=== PATIENT | male | born 1965 | race Caucasian/White ===

== ENCOUNTER 2017-09-10 19:51 | Emergency (ER) | payer SELFPAY ==
[~2017-09-10] VITALS: Ht 175.3 cm; Wt 70.3 kg
[~2017-09-10 19:51] MED LIST: NAPR-243 PO
[2017-09-10] MEDS ORDERED: LIDOCAINE 1% INJ 20 ML 20 ML VIAL ONE (19:55)
--- OUTSIDE RECORDS SUMMARY | 2017-09-10 19:57 | XMS REPORT | Clinical Summary ---
Author Author [facility] Organization [facility] Address Unknown Phone Unavailable Care Team Providers Care Chemist Pharmaceutical Name Role Phone Issa Mesa MD PCP Source Comments Some departments are not documenting in the electronic medical record. If you do not see the information that you expected, contact Release of Information in the Health Information Management department at [phone] for further assistance in locating additional records.[facility] Allergies Not on File Current Medications Not on file Active Problems Not on file Social History Tobacco Use Types Packs/Day Years Used Date Never Assessed Sex Assigned at Date Recorded Not on file Last Filed Vital Signs Not on file Plan of Treatment Health Maintenance Due Date Last Done Comments HEPATITIS C SCREENING 1965 PHYSICAL (COMPREHENSIVE) 01/15/1972 EXAM PERTUSSIS VACCINE 01/15/1976 HIV SCREENING 01/15/1980 TETANUS VACCINE 1982 COLORECTAL CANCER 2015 SCREENING INFLUENZA VACCINE 12/25/2017 Results Not on filefrom Last 3 Months
--- OUTSIDE RECORDS SUMMARY | 2017-09-10 19:57 | XMS REPORT | Clinical Summary ---
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 2 Dose Standard) Influenza Vaccine (Season 11/25/2017 Ended) Results Not on filefrom Last 3 Months
--- OUTSIDE RECORDS SUMMARY | 2017-09-10 19:57 | XMS REPORT | Continuity of Care Document ---
Author Author [facility] Organization [facility] Address Unknown Phone Unavailable Allergies There is no data. Medications There is no data. Problems There is no data. Procedures There is no data. Results There is no data. Encounters ACCT No. Visit Date/Time Discharge Status Pt. Type Provider Facility Loc./Unit Complaint [id number] 12/16/2013 18:08:00 12/16/2013 19:14:00 DIS Emergency
--- OUTSIDE RECORDS SUMMARY | 2017-09-10 19:57 | XMS REPORT ---
Author Author REHAN HALL [facility] Address [address] [place] [address] Care Team Providers Care Senior Sql Server Developer Name Role Phone REHAN HALL Unavailable PROBLEMS Unknown Problems ALLERGIES No Known Allergies ENCOUNTERS [facility]counter [facility] [address] [facility] [id number] [address] Oct, Foreign body in skin T14.8 IMMUNIZATIONS No Known Immunizations SOCIAL HISTORY Never Assessed REASON FOR VISIT splinter left forearm Sat JStrasserRN PLAN OF CARE Activity Details Follow Up prn Reason: VITAL SIGNS Height 69.5 in 2016-11-21 Weight 151.4 lbs 2016-11-21 Temperature 97.9 degrees Fahrenheit 2016-11-21 Heart Rate 74 bpm 2016-11-21 Respiratory Rate 20 2016-11-21 BMI 22.03 kg/m2 2016-11-21 Blood pressure systolic 148 mmHg 2016-11-21 Blood pressure diastolic 90 mmHg 2016-11-21 MEDICATIONS Medication Instructions Dosage Frequency Start Date End Date Duration Status Hydrocodone-Acetaminophen 5-325 MG Orally every 6 hrs 1 tablet as needed 6h Oct, Nov, 6 days Active Bactrim DS 800-160 MG Orally 2 times a day 1 tablet 12h Oct,Nov 10 day(s) Active RESULTS No Results PROCEDURES No Known procedures INSTRUCTIONS MEDICATIONS ADMINISTERED No Known Medications
[2017-09-10] MEDS ORDERED: LIDOCAINE 1% INJ 20 ML 20 ML VIAL INJ ONE (20:00)
--- NOTE | 2017-09-10 20:04 | ED Integumentary General ---
General Stated Complaint: LEG LAC Source: patient Exam Limitations: no limitations History of Present Illness Date Seen by Provider: Sep 10, 2017 Time Seen by Provider: 19:45 Initial Comments The patient presents to the ER by private conveyance with a chief complaint that he was helping a friend move and there was some glass that fell and broke against his right prieto. Causing a small laceration that bled all down his leg. He is up-to-date on his tetanus shot does not booster. He is not having any chills. He has not taken anything for pain. He is not anything for pain. He is not on any blood thinners. He does smoke. Allergies and Home Medications Allergies Coded Allergies: No Known Drug Allergies (Unverified , 12/16/13) Home Medications Naproxen 500 Mg Tablet, 1 EACH PO BID PRN for PAIN FOR PAIN Prescribed by: BELLE PRICE on 12/16/13 [id number] Patient Home Medication List Home Medication List Reviewed: Yes Constitutional: No chills, No diaphoresis EENTM: No ear discharge, No ear pain Respiratory: No cough, No phlegm Cardiovascular: No chest pain, No palpitations Gastrointestinal: No abdominal pain, No constipation, No diarrhea, No nausea Genitourinary: No discharge, No dysuria Past Nzmisjw-Tfnysz-Tdtthn Hx Patient Social History Alcohol Use: Occasionally Uses Alcohol Beverage of Choice: Beer Recreational Drug Use: No Smoking Status: Current Everyday Smoker Type Used: Cigarettes (0.5 ppd) Past Medical History Chronic Back Pain Physical Exam Vital Signs Vital Signs - First Documented 09/10/17 19:55 Temp 96.8 Pulse 97 Resp 18 B/P (MAP) 110/82 (91) Pulse Ox 98 O2 Delivery Room Air Capillary Refill : General Appearance: WD/WN, no apparent distress HEENT: PERRL/EOMI, pharynx normal Neck: non-tender, normal inspection Cardiovascular: normal peripheral pulses, regular rate, rhythm, no edema Respiratory: chest non-tender, lungs clear, normal breath sounds, no respiratory distress, no accessory muscle use Gastrointestinal: normal bowel sounds, no organomegaly, no pulsatile mass Extremities: non-tender, no pedal edema, normal capillary refill Neurologic/Psychiatric: alert, oriented x 3 Skin: normal color, warm/dry Skin Problem Location: lower extremities (right anterior proximal prieto) Skin Problem Character: linear (linear laceration 1 cm in length) Procedures/Interventions Wound Location: Lower Extremities Other Wound Location Proximal anterior right prieto Wound Length (cm): 1 Wound's Depth, Shape: linear, sub Q (just above faschia) Wound Explored: no foreign body removed Betadine Prep?: Yes (chlorhexidine soap water) Anesthesia: 1% Lidocaine (3) Volume Anesthetic (ccs): 3 Wound Debrided: minimal Suture: Prolene Suture Size: 4-0 Number of Sutures: 3 Progress The patient was reclined in a recumbent position and the wound was numbed up after being cleaned thoroughly with chlorhexidine soap water. When the patient was ascertained to be numb the wound was reapproximated and stitched with simple interrupted stitches. The patient tolerated the procedure well. Progress/Results/Core Measures Results/Orders My Orders Orders - RILEY BURGOS Lidocaine 1% Inj 20 Ml (Xylocaine 1% Inj (09/10/17 20:00) Lidocaine 1% Inj 20 Ml (Xylocaine 1% Inj (09/10/17 19:55) Vital Signs/I&O 09/10/17 19:55 Temp 96.8 Pulse 97 Resp 18 B/P (MAP) 110/82 (91) Pulse Ox 98 O2 Delivery Room Air Progress Progress Note : Time: 20:08 Progress Note The patient has declined a tetanus shot. Wound is hemostatic and cleaned thoroughly. He presented promptly after the wound was made. It's not on his distal extremity and therefore will not likely need any antibiotics. Departure Impression Primary Impression: Laceration of leg not thigh, right Qualified Codes: S81.811A - Laceration without foreign body, right lower leg, initial encounter Disposition: 01 HOME, SELF-CARE Condition: Improved Departure-Patient Inst. Decision time for Depature: 20:11 Referrals: NO,LOCAL PHYSICIAN (PCP/Family) Primary Care Physician Patient Instructions: Laceration Repair With Stitches (DC) Add. Discharge Instructions: You may return to the ER in 10-14 days to have the stitches removed. If you begin to have fevers, chills, redness or drainage from the wound you can return sooner to have it reevaluated or you can go to urgent care or a primary care doctor to have it evaluated. If you do accidentally pull a stitch out apply direct pressure until the bleeding stops usually about 20-40 minutes and keep the leg elevated above the level of your heart at that time. For swelling or pain you can use ice packs for the first couple days as well as Tylenol and Motrin. RILEY BURGOS Sep 10, 2017 20:04
[2017-09-10 20:18] VITALS: BP 110/82
== END 2017-09-10 20:18 | disposition home or self-care (01) ==
LOC: EDUNIT# 19:51 → ER 19:52
DX: S81.811A Laceration without foreign body, right lower leg, initial encounter (principal); F17.210 Nicotine dependence, cigarettes, uncomplicated; W25.XXXA Contact with sharp glass, initial encounter
CPT/HCPCS: 12001